=== PATIENT | male | born 1940 | race Two or more races ===

== ENCOUNTER 2017-09-13 11:29 | Outpatient (CLI) | payer OTHER | END 2017-09-13 12:29 | disposition home or self-care (01) | LOC: LAB 11:29 | DX: C61 Malignant neoplasm of prostate (principal); I10 Essential (primary) hypertension ==

== ENCOUNTER 2018-10-18 18:21 | Inpatient (IN) | payer OTHER ==
[~2018-10-18] VITALS: Ht 190.5 cm; Wt 113.4 kg
--- NOTE | 2018-10-18 18:46 | NUR ---
SE RECIBE PACIENTE EN AMBULANCIA ALERTA Y CON SIGNOS VITALES ESTABLES, NO REFIERE DOLOR, LEVEMENTE DESORIENTADO. PERSONAL DE AMBULANCIA REFIERE QUE PACIENTE SE DESMAYO EN EL TRABAJO. SE COLOCA EN CAMA HASTA SER EVALUADO POR .
--- NOTE | 2018-10-18 23:08 | NUR ---
SE RECIBE PACIENTE DE TURNO ANTERIOR ALERTA,ORIENTADO EN FADI ESFERAS,DESCANSANDO EN CAMA EN COMPANIA DE FAMILIAR. PACIENTE PENDIENTE CONSULTA CON .
--- NOTE | 2018-10-19 07:11 | NUR ---
SE RECIBE PTE EL CUAL SE ENCENTRA SENTADO EN BUTACA ACOMPANADO POR FAMILIAR. PTE SE ENCUENTRA PEND A CONSULTA CON DR. CR SE MANTIENE PTE BAJO OBSERVACION RECIBIENDO TRATAMIENTO MEDICO.
== END 2018-10-25 11:27 | disposition home or self-care (01) | DRG 603 ==
LOC: ER 18:21 → SEC-K 10-19 17:15 → MEDI 10-19 17:15 → SURG 10-19 18:17 → MEDI 10-19 20:51
PROVIDERS: ADMIT Internal Medicine
PROC: B246ZZZ Ultrasonography of Right and Left Heart (ICD-10-PCS; principal; 2018-10-19)
PROC: B345ZZZ Ultrasonography of Bilateral Common Carotid Arteries (ICD-10-PCS; 2018-10-19)
PROC: B246ZZZ Ultrasonography of Right and Left Heart (ICD-10-PCS; 2018-10-19)
PROC: 4A12X4Z Monitoring of Cardiac Electrical Activity, External Approach (ICD-10-PCS; 2018-10-20)
PROC: B54DZZZ Ultrasonography of Bilateral Lower Extremity Veins (ICD-10-PCS; 2018-10-20)
PROC: 3E0F7GC Introduction of Other Therapeutic Substance into Respiratory Tract, Via Natural or Artificial Opening (ICD-10-PCS; 2018-10-20)
DX: L03.116 Cellulitis of left lower limb (principal); R55 Syncope and collapse; B95.61 Methicillin susceptible Staphylococcus aureus infection as the cause of diseases classified elsewhere; B95.1 Streptococcus, group B, as the cause of diseases classified elsewhere; F01.50 Vascular dementia, unspecified severity, without behavioral disturbance, psychotic disturbance, mood disturbance, and anxiety